=== PATIENT | male | born 1960 | race Caucasian/White ===

== ENCOUNTER → 2020-06-01 | Outpatient (CLI) | payer OTHER ==
--- NOTE | 2020-06-02 17:34 | RADIOLOGY REPORT (SQ) ---
EXAM DESCRIPTION: MRI RT LOWER JOINT WITHOUT IMAGES COMPLETED DATE/TIME: 06/01/2020 1:47 pm REASON FOR STUDY: M19.071 PRIMARY OSTEOARTHRITIS, RIGHT ANKLE AND FOOT M19.071 PRIMARY OSTEOARTHRIT IS, RIGHT ANKLE AND FOOT COMPARISON: None. TECHNIQUE: Right ankle images acquired and stored on PACS. Multiplanar images include fat sensitive sequences as T1, fluid sensitive sequences as FST2/STIR, cartilage sensitive sequences as FSPD, and g radient echo sequences. LIMITATIONS: None. FINDINGS: BONE MARROW: No acute fracture. No marrow edema. Chronic appearing medial malleolus frac ture. EFFUSIONS: No subtalar or tibiotalar effusions. No loose bodies. OSSEOUS ARTICULATIONS: No bulky osteophytes or aggressive erosions. Mild spurring along the talonavi cular articulation. Small central subtalar calcaneal cyst may be present. Likely related to subtala r arthropathy. TALAR DOME AND TIBIAL PLAFOND: Minimal subchondral edema, likely tiny osteochondral lesion in the sup eromedial talar dome measuring up to 6 mm. Mild spurring in the tibial plafond. ACHILLES TENDON: Intact without partial or full-thickness tear. No adjacent bursal fluid or edema. TIBIALIS ANTERIOR TENDON: Intact without edema at the 1st MT attachment. TIBIALIS POSTERIOR TENDON: Normal morphology and no edema at the navicular attachment. No tendon ferrell th fluid. FLEXOR HALLUCIS LONGUS AND FLEXOR DIGITORUM TENDONS: Normal morphology and no tendon sheath fluid. No edema of the os trigonum. PERONEUS LONGUS AND BREVIS TENDON: Suspect a mild split tear in the peroneus brevis tendon. ATFL, CFL, PTFL: Intact. No thickening or signal alteration. No devante-ligamentous fluid. DELTOID LIGAMENT: Visualized components intact. TARSAL TUNNEL: No masses. No muscle atrophy. SINUS TARSI: No fluid. No reactive marrow edema or erosions. PLANTAR FASCIA: No signal alteration or tear. ADJACENT SOFT TISSUES: No masses. OTHER: No other significant finding. IMPRESSION: 1. Mild arthropathic changes as above. 2. 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 3. Partial split tear of the peroneus brevis suspected. TECHNICAL DOCUMENTATION: JOB ID: [id number] [employer]- All Rights Reserved Reading location - IP/workstation name: [email or web address]
== END ==
LOC: RAD 12:38
PROVIDERS: ATTEND Physician Assistant
DX: M19.071 Primary osteoarthritis, right ankle and foot (principal)